=== PATIENT | female | born 1950 | race African-American/Black ===

== ENCOUNTER → 2020-11-19 | Outpatient (CLI) | payer OTHER ==
[~2020-11-19] MED LIST: ATIVAN0.5 MG PO; BENICAR HCT 401 EACH PO; CLONIDINE HCL0.2 M2 PO; DILTIAZEM 24HR240 MG PO; LO-DOSE ASPIRIN81 M1 PO; NOVOLOG MI100 UNIT/2 SUBQ; OMEPRAZOLE 20 M20 M1 PO
== END ==
LOC: SJCVCIMAG 08:10
PROVIDERS: ATTEND Internal Medicine
DX: I07.1 Rheumatic tricuspid insufficiency (principal); R06.00 Dyspnea, unspecified; I49.3 Ventricular premature depolarization; I49.9 Cardiac arrhythmia, unspecified; I11.9 Hypertensive heart disease without heart failure; R00.0 Tachycardia, unspecified; R00.2 Palpitations; E11.9 Type 2 diabetes mellitus without complications; M19.90 Unspecified osteoarthritis, unspecified site; Z79.82 Long term (current) use of aspirin; Z79.4 Long term (current) use of insulin; Z79.899 Other long term (current) drug therapy

== ENCOUNTER → 2020-11-26 | Outpatient (CLI) | payer OTHER | LOC: SJCVC 09:03 | PROVIDERS: ATTEND Internal Medicine | DX: I25.10 Atherosclerotic heart disease of native coronary artery without angina pectoris (principal); R00.2 Palpitations ==

== ENCOUNTER → 2020-12-31 | Outpatient (CLI) | payer OTHER | LOC: SJCVC 10:08 | PROVIDERS: ATTEND Internal Medicine | DX: R06.00 Dyspnea, unspecified (principal); R06.83 Snoring; R00.2 Palpitations; I10 Essential (primary) hypertension; E11.9 Type 2 diabetes mellitus without complications; M19.90 Unspecified osteoarthritis, unspecified site; I25.10 Atherosclerotic heart disease of native coronary artery without angina pectoris; F41.9 Anxiety disorder, unspecified; Z79.4 Long term (current) use of insulin; Z79.82 Long term (current) use of aspirin; Z79.899 Other long term (current) drug therapy ==